=== PATIENT | male | born 1980 | race Caucasian/White ===

== ENCOUNTER → 2016-07-31 | Outpatient (REF) | payer MEDICARE, MEDICAID ==
[2016-07-31 09:57] LABS: MEAN CORPUSCULAR HEMOGLOBIN 28.8 PG (26.0-34.0); MEAN PLATELET VOLUME 10.3 FL (6.0-9.5); WHITE BLOOD COUNT 8.49 10^3uL (4.0-11.0)
[2016-07-31 12:13] LABS: ALBUMIN 4.2 g/dL (3.4-5.0); ANION GAP 14.5 MEQ/L (3-15); CALCULATED IONIZED CALCIUM 4.1 mg/dL (3.8-4.6); TOTAL PROTEIN 7.4 g/dL (6.4-8.5)
== END ==
LOC: LAB 09:31
DX: Z79.899 Other long term (current) drug therapy (principal)
CPT/HCPCS: 80053; 80061; 84443; 85027

== ENCOUNTER → 2016-09-24 | Outpatient (REF) | payer MEDICARE, MEDICAID | LOC: LAB 08:00 | PROVIDERS: ATTEND Family Medicine | DX: R19.7 Diarrhea, unspecified (principal) | CPT/HCPCS: 87507 ==